=== PATIENT | female | born 1955 | race Caucasian/White ===

== ENCOUNTER 2019-12-08 13:00 | Outpatient (CLI) | payer BC ==
--- NOTE | 2019-12-09 11:57 | XRAY Report ---
Reason: TOE SWELLING, RIGHT Procedure Date: 12/08/2019 Accession Number: [id number] / [id number] Procedure: XR - Foot 3 View RT CPT Code: Final Report FULL RESULT: EXAM: RIGHT FOOT RADIOGRAPHY EXAM DATE: 12/08/2019 01:17 PM. CLINICAL HISTORY: TOE SWELLING, RIGHT. Hit toes on log 2.5 weeks ago. Second and third toe pain. COMPARISON: None. TECHNIQUE: 3 views. FINDINGS: Bones: Lateral view demonstrates a recent 4 x 3 mm intra-articular avulsion fracture with 2 mm displacement along the dorsal base of a middle phalanx that may be the second or third toe. Overlying osseous structures on lateral view limits evaluation. Joints: Mild right first metatarsophalangeal joint space narrowing with small marginal osteophytes. No subluxations. Soft Tissues: Normal. No soft tissue swelling. IMPRESSION: 1. Lateral view demonstrates a recent 4 x 3 mm intra-articular avulsion fracture with 2 mm displacement along the dorsal base of a middle phalanx that may be the second or third toe. Overlying osseous structures on lateral view limit evaluation. Lateral views of the right second and third toes are recommended to better characterize. 2. Mild right first MTP joint degenerative changes. RADIA
== END 2019-12-08 13:01 | disposition home or self-care (01) ==
LOC: DI 13:00
PROVIDERS: ATTEND Nurse Practitioner Family
DX: S92.521A Displaced fracture of middle phalanx of right lesser toe(s), initial encounter for closed fracture (principal); M19.071 Primary osteoarthritis, right ankle and foot

== ENCOUNTER 2019-12-10 09:16 | Outpatient (CLI) | payer BC ==
--- NOTE | 2019-12-10 20:30 | XRAY Report ---
Reason: FRACTURE OF PHALANX OF FOOT RIGHT Procedure Date: 12/10/2019 Accession Number: [id number] / [id number] Procedure: XR - Toe(s) RT CPT Code: Final Report FULL RESULT: EXAM: RIGHT TOE RADIOGRAPHY EXAM DATE: 12/10/2019 10:05 AM. CLINICAL HISTORY: FRACTURE OF PHALANX OF FOOT RIGHT. COMPARISON: FOOT 3 VIEW RT 12/08/2019 1:11 PM. TECHNIQUE: 4 views. FINDINGS: Bones: Small avulsion fracture of the dorsal aspect of the base of the distal phalanx of the third digit. No other fractures are identified. Joints: Normal. No subluxations. Soft Tissues: Mild soft tissue swelling of the third digit. IMPRESSION: Fractured third distal phalanx. RADIA
== END 2019-12-10 09:17 | disposition home or self-care (01) ==
LOC: DI 09:16
PROVIDERS: ATTEND Nurse Practitioner Family
DX: S92.501A Displaced unspecified fracture of right lesser toe(s), initial encounter for closed fracture (principal)
CPT/HCPCS: 73660

== ENCOUNTER 2020-01-28 19:40 | Emergency (ER) | payer BC ==
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
[2020-01-28 20:25] LABS: BASOPHILS # (AUTO) 0.1 10^3/uL (0.0-0.1); BASOPHILS % (AUTO) 0.6 %; EOSINOPHILS # (AUTO) 0.1 10^3/uL (0.0-0.7); EOSINOPHILS % (AUTO) 0.6 %; HGB - HEMOGLOBIN 13.3 g/dL (12.0-16.0); LYMPHOCYTES # (AUTO) 2.7 10^3/uL (1.5-3.5); LYMPHOCYTES % (AUTO) 27.4 %; MEAN CORPUSCULAR HEMOGLOBIN 30.9 pg (27.0-31.0); MEAN CORPUSCULAR HGB CONC 32.3 g/dL (32.0-36.0); MEAN CORPUSCULAR VOLUME 95.6 fL (81.0-99.0); MEAN PLATELET VOLUME 8.8 fL (7.9-10.8); MONOCYTES # (AUTO) 0.6 10^3/uL (0.0-1.0); MONOCYTES % (AUTO) 6.4 %; NEUTROPHILS # (AUTO) 6.4 10^3/uL (1.5-6.6); NEUTROPHILS % (AUTO) 64.8 %; PLT - PLATELET COUNT 218 10^3/uL (130-450); RED BLOOD COUNT 4.31 10^6/uL (4.20-5.40); RED CELL DISTRIBUTION WIDTH 12.1 % (12.0-15.0)
[2020-01-28 20:39] LABS: ALBUMIN/GLOBULIN RATIO 1.4 (1.0-2.2); BILIRUBIN,TOTAL 0.6 mg/dL (0.2-1.0); CALCIUM 9.2 mg/dL (8.5-10.3); CREATININE 1.2 mg/dL (0.4-1.0); TOTAL PROTEIN 6.9 g/dL (6.7-8.2)
--- NOTE | 2020-01-28 20:42 | XRAY Report ---
PROCEDURE: Chest 2 View X-Ray INDICATIONS: Right-sided chest pain, resolved TECHNIQUE: 2 view(s) of the chest. COMPARISON: None. FINDINGS: Surgical changes and devices: None. Lungs and pleura: No pleural effusions or pneumothorax. Lungs are clear. Mediastinum: Mediastinal contours are normal. Heart size is normal. Bones and chest wall: No suspicious bony abnormalities. Soft tissues appear unremarkable. IMPRESSION: No acute finding. Reviewed by: Zhou Hayes MD on 01/28/2020 8:41 PM PDT Approved by: Zhou Hayes MD on 01/28/2020 8:41 PM PDT Station ID: [id number]
[2020-01-28 21:17] VITALS: BP 113/61
== END 2020-01-28 21:35 | disposition home or self-care (01) ==
LOC: ED 19:40
DX: R07.9 Chest pain, unspecified (principal)
CPT/HCPCS: 36415; 71046; 80053; 83690; 84484; 85025; 85379; 93005; 99284

== ENCOUNTER 2022-01-14 12:38 | Emergency (ER) | payer MEDICARE, OTHER ==
--- OUTSIDE RECORDS SUMMARY | 2022-01-14 13:00 | EXTERNAL MEDICAL SUMMARY RPT | Continuity of Care Document ---
:1955 Author Organization [facility] Address [address] [place] [address] Phone Allergies No information. Encounters No information. Functional Status No information. Immunizations No information. Medications No information. Problems No information. Procedures No information. Results/Labs No information. Social History date description facility +0000 Never smoker [facility] [place] Vital Signs date measurement value units +0000 BMI BMI 23.93 kg/m2 +0000 BP_diastolic BP_diastolic 84 mm[H g] +0000 BP_systolic BP_systolic 120 mm[Hg] +0000 heart_rate heart_rate 57 /min +0000 height_metric height_metric 168.91 cm +0000 height_standard height_standard 66.5 in +0000 respiration_rate respiration_rate 16 /min +0000 temperature_metric temperature_metric 36.56 C +0000 temperature_standard temperature_standard 9 7.8 F +0000 weight_metric weight_metric 68.04 kg +0000 weight_standard weight_standard 150 lb
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
[2022-01-14 14:06] VITALS: BP 147/92
== END 2022-01-14 14:06 | disposition home or self-care (01) ==
LOC: EDUNIT# → ED 12:38
DX: S40.011A Contusion of right shoulder, initial encounter (principal); S50.311A Abrasion of right elbow, initial encounter; V18.4XXA Pedal cycle driver injured in noncollision transport accident in traffic accident, initial encounter; Y93.55 Activity, bike riding
CPT/HCPCS: 99282; 99284

== ENCOUNTER 2022-10-22 13:11 | Outpatient (CLI) | payer MEDICARE, OTHER ==
[2022-10-22 14:35] LABS: BASOPHILS % (AUTO) 0.6 %; EOSINOPHILS % (AUTO) 0.6 %; HCT - HEMATOCRIT 42.5 % (37.0-47.0); HGB - HEMOGLOBIN 13.7 g/dL (12.0-16.0); LYMPHOCYTES # (AUTO) 1.5 10^3/uL (1.5-3.5); LYMPHOCYTES % (AUTO) 22.1 %; MEAN CORPUSCULAR HEMOGLOBIN 30.2 pg (27.0-31.0); MEAN CORPUSCULAR HGB CONC 32.2 g/dL (32.0-36.0); MEAN CORPUSCULAR VOLUME 93.6 fL (81.0-99.0); MEAN PLATELET VOLUME 9.3 fL (7.9-10.8); MONOCYTES # (AUTO) 0.5 10^3/uL (0.0-1.0); MONOCYTES % (AUTO) 6.7 %; NEUTROPHILS # (AUTO) 4.7 10^3/uL (1.5-6.6); NEUTROPHILS % (AUTO) 69.9 %; PLT - PLATELET COUNT 269 10^3/uL (130-450); RED BLOOD COUNT 4.54 10^6/uL (4.20-5.40); RED CELL DISTRIBUTION WIDTH 13.5 % (12.0-15.0); WHITE BLOOD COUNT 6.7 x10^3/uL (4.8-10.8)
== END 2022-10-22 13:12 | disposition home or self-care (01) ==
LOC: LAB.S 13:11
PROVIDERS: ATTEND Physician Assistant Medical
DX: J06.9 Acute upper respiratory infection, unspecified (principal)
CPT/HCPCS: 36415; 85025